=== PATIENT | female | born 1990 | race Caucasian/White ===

== ENCOUNTER 2019-01-03 08:55 | Inpatient (IN) | payer OTHER ==
[~2019-01-03] VITALS: Ht 162.6 cm; Wt 79.1 kg
[2019-01-04] VITALS (7 sets, daily range): BP systolic 98–134; BP diastolic 54–82; PULSE 61–96; TEMP 97.9–98.3
--- NOTE | 2019-01-04 18:45 | NUR ---
G2L0. 41-0. Ambulatory to LDR 6 with spouse for scheduled cytotec induction. Pt oriented to room and clean gown on. 1854: EFM and TOCO explained, applied and tracing well. 1899: IV started and labs obtained via IV site. LR bolus infusing without difficulties. Consents and assesment completed. 1937: FHR strip reactive. Cytotec explained. SVE 0/50/-3 per TERRI Ramírez. Cytotec also administered by TERRI Ramírez. Pericare provided and pt repositioned to RL position. Plan of care explained to pt and family who verbalize understanding. Call light within reach.
[2019-01-04] MEDS ORDERED: PRENATAL MVI PO (19:15)
[2019-01-04 19:34] LABS: BASO % 0.2 % (0.0-2.0); EOS % 0.1 % (0-4.0); GRAN # 8.4 (1.4-6.5); GRAN % 73.7 % (42.2-75.2); HEMATOCRIT 42.9 % (37.0-47.0); HEMOGLOBIN 14.5 g/dl (12.5-16.0); LYMPH # 2.1 (1.2-3.4); LYMPH % 18.8 % (20.0-51.0); MEAN CELL VOLUME 88 fl (80.0-100.0); MEAN CORPUSCULAR HEMOGLOBIN 30 pg (27.0-31.0); MEAN CORPUSCULAR HGB CONC 34 g/dl (33.0-37.0); MEAN PLATELET VOLUME 10.4 fl (7.4-10.4); MONO # 0.7 (0.1-0.6); MONO % 6.4 % (1.7-9.3); PLATELET COUNT 220 K/mm3 (130-400); RED BLOOD COUNT 4.86 M/mm3 (4.10-5.30)
--- NOTE | 2019-01-04 21:40 | NUR ---
FHR strip reactive. Pt off monitors to use restroom and ambulate. Plan of care explained to pt and who verbalize understanding. Will continue to monitor.
--- NOTE | 2019-01-04 23:19 | NUR ---
Pt states she is starting to cramp and getting uncomfortable. Pt breathing through contractions. Monitors reapplied. FHR minimal variablity, accels noted. 2340: FHR minimal. Plan of care explained to pt and . Pt repositioned to right lateral position. 2352: Pt up to bathroom. Pt repositioned to high fowlers positions when returns to bed. 0010: SVE 1/70/-2. Scalp stimulation noted with exam. Pt coupling with contractions, firm on palpations with relaxation between contractions. 0105: Pt continues to reposition self in bed due to being uncomfortable. Coupling contractions noted lasting up to 360seconds. LR bolus started infusing. Plan of care explained to pt. 0133: called and updated on pts status. See physican notification. 0149: Pt of care and new orders per provider explained to pt and who verbalize their understanding. Pt assisted on birthing ball. 0212: Pt called out asking questions about epidural. SVE 1-2/80/-2. pericare provided and pt repositioned to HF. Pt requesting an epidural at this time. LR bolus infusing per protocol. Nevaeh SLIP CASTER notified. 0244: Nevaeh SLIP CASTER at bedside for epidural placement and procedure explained. Pt assisted to EOB. Difficulty tracing FHR due to maternal position. RN at bedside adjusting monitors. Pulse ox applied and tracing well. 0250: Single shot administered by Nevaeh AREVALO. See anesthesia records 0253: Pt repositioned to wedge right position per request. Plan of care and safety precautions explained to pt and who verbalize understanding. 0304: FHR deceleration noted down to 60bpms at lowest point lasting 90 seconds. Pt repositioned to left lateral position with return to baseline. 0321: BP 94/53, Ephedrine 10mg administered per orders. BP retake 106/58. Will continue to monitor. 0352: Pt laid flat for moncada placement. Moncada inserted without difficulties. SVE 2/80/-2. Pericare provided and pt repositioned to RL. Plan of care explained to pt. Call light within reach.
[2019-01-05] VITALS (71 sets, daily range): BP systolic 94–163; BP diastolic 53–88; PULSE 65–160; TEMP 97.9–99.9
--- NOTE | 2019-01-05 08:35 | NUR ---
Dr Duque at nurses station and updated on patient/FHR strip. 0840: Dr. Duque at bedside and evaluating patient/FHR strip and discussing plan of care. 0845: SVE per physician /2 and AROM at this time with meconium fluid noted.
--- NOTE | 2019-01-05 09:00 | NUR ---
Dr. Duque continues to view FHR strip at nurses station. Orders to continue to change patients position. 0945: Dr. Duque continues to watch FHR strip. 0955: SVE per physician and notes feeling some sweeling on anterior of cervix. Orders to continue to reposition.
--- NOTE | 2019-01-05 11:15 | NUR ---
Pitocin off per Dr. Naik order. See physician notification.
--- NOTE | 2019-01-05 12:13 | NUR ---
1105: Subtle recurrent late decelerations noted. Patient wedged left.
--- NOTE | 2019-01-05 15:15 | NUR ---
1515:SVE-10/100/-1 Dr[address] Duque called and notified and orders to begin pushing. Patient given pushing instructions and questions answered. Patient prepped. 1533: Patient begins to push with each contraction. FHR baseline 150bpm and tracing recurrent variable decelerations. 1552: Dr. Duque called and notified that she is needed for delivery, 1605: Dr. Duque at bedside and evaluating progress. Bed taken apart, patient prepped for vaginal delivery, and pericare done. 1611: Spontaneous vaginal delivery of head followed by body. Infant to patient abdomen and Infant bulb syringed and Edgardo RN assumes care of infant. Physician clamps/cuts cord. Cord gases obtained/ cord blood obtained. 1619: Spontaneous vaginal delivery of placenta and pitocin bolus started per protocol. Dr. Duque repairs laceration. Fundal massage done/firm/bleeding WNL. 1625: Patient repositioned/ice pack to perineum/plan of care discussed.
[2019-01-06 00:30] VITALS: BP 124/81; PULSE 105; TEMP 97.9
[2019-01-06 04:30] VITALS: BP 106/77; PULSE 113; TEMP 97.8
[2019-01-06 07:40] VITALS: BP 127/84; PULSE 97; TEMP 98.2
[2019-01-06] MEDS ORDERED: PERCOCET 325 MG1 TA2 PO (08:36)
[2019-01-06] MEDS ORDERED: IBU800 M1 PO (08:36)
== END 2019-01-06 10:05 | disposition home or self-care (01) | DRG 768 ==
LOC: LDR 01-04 08:55 → OB 01-04 18:42 → LDR 01-05 12:46 → OB 01-05 21:20
PROVIDERS: ADMIT Student in an Organized Health Care Education/Training Program
PROC: 3E0P7VZ Introduction of Hormone into Female Reproductive, Via Natural or Artificial Opening (ICD-10-PCS; 2019-01-04)
PROC: 10E0XZZ Delivery of Products of Conception, External Approach (ICD-10-PCS; principal; 2019-01-05)
PROC: 0UQG0ZZ Repair Vagina, Open Approach (ICD-10-PCS; 2019-01-05)
PROC: 3E033VJ Introduction of Other Hormone into Peripheral Vein, Percutaneous Approach (ICD-10-PCS; 2019-01-05)
DX: O48.0 Post-term pregnancy (principal); Z37.0 Single live birth; O71.4 Obstetric high vaginal laceration alone; Z3A.41 41 weeks gestation of pregnancy; O69.81X0 Labor and delivery complicated by cord around neck, without compression, not applicable or unspecified
CPT/HCPCS: J2405; J2590; J2795; J7120